=== PATIENT | male | born 2000 | race Two or more races ===

== ENCOUNTER → 2022-02-19 21:07 | Emergency (ER) | payer OTHER ==
[~2022-02-19] VITALS: Ht 167.6 cm; Wt 63.5 kg
[2022-02-19 21:07] VITALS: BP 130/67
== END | disposition left against medical advice (07) ==
LOC: ER 21:07
DX: R10.13 Epigastric pain (principal); Z53.21 Procedure and treatment not carried out due to patient leaving prior to being seen by health care provider